=== PATIENT | male | born 1970 | race Caucasian/White ===

== ENCOUNTER 2016-07-09 23:21 | Emergency (ER) | payer MEDICARE ==
[~2016-07-09] VITALS: Ht 180.3 cm; Wt 91.8 kg
[~2016-07-09 23:21] MED LIST: ARIP10TA13 PO; CITA20TA9 PO; LEVE500T53 PO; LEVO50TA PO; OXCA150T PO; PARO20TA55 PO; PHEN100C PO; PRIM50TA PO; TERA2CAP3 PO
[2016-07-10 00:28] LABS: BLOOD UREA NITROGEN 6 mg/dL (7-18)
[2016-07-10 00:29] LABS: ACETAMINOPHEN < 2 mcg/mL (10-30)
[2016-07-10 02:32] VITALS: BP 125/83
[2016-07-11] MEDS ORDERED: OLAN2.5T3 PO (13:13)
[2016-07-11] MEDS ORDERED: BENZ2TAB6 PO (13:13)
[2016-07-11] MEDS ORDERED: cogentin PO (13:13)
[2016-07-11] MEDS ORDERED: CARB200T4 PO (13:13)
[2016-07-11] MEDS ORDERED: HALO5TAB5 PO (13:13)
[2016-07-11] MEDS ORDERED: PARO10TA24 PO (13:13)
[2016-07-11] MEDS ORDERED: CARB200T PO ×2 (13:13)
[2016-07-11] MEDS ORDERED: TAMS-11 PO (13:13)
[2016-07-11] MEDS ORDERED: VALP250C59 PO (14:24)
== END 2016-07-10 02:34 | disposition home or self-care (01) ==
LOC: ED 23:59
DX: F20.0 Paranoid schizophrenia (principal); F31.9 Bipolar disorder, unspecified
CPT/HCPCS: 36415; 80048; 80307; 80329; 82040; 85025; 99284; G0480

== ENCOUNTER 2016-07-11 11:46 | Emergency (ER) | payer MEDICARE ==
[~2016-07-11] VITALS: Ht 180.3 cm; Wt 84.2 kg
[2016-07-11 13:09] LABS: DAU SCREEN DISCLAIMER
[2016-07-11] MEDS ORDERED: HALO5TAB5 PO (13:13)
[2016-07-11] MEDS ORDERED: TAMS-11 PO (13:13)
[2016-07-11] MEDS ORDERED: CARB200T PO ×2 (13:13)
[2016-07-11] MEDS ORDERED: PARO10TA24 PO (13:13)
[2016-07-11] MEDS ORDERED: BENZ2TAB6 PO (13:13)
[2016-07-11] MEDS ORDERED: CARB200T4 PO (13:13)
[2016-07-11] MEDS ORDERED: OLAN2.5T3 PO (13:13)
[2016-07-11] MEDS ORDERED: cogentin PO (13:13)
[2016-07-11 13:15] LABS: PATH.CAST-FLAG NOT PRESENT; SPERM-FLAG NOT PRESENT; SRC-FLAG NOT PRESENT; XTAL-FLAG NOT PRESENT; YLC-FLAG NOT PRESENT
[2016-07-11 13:34] LABS: ACETAMINOPHEN 2 mcg/mL (10-30); ASPARTATE AMINO TRANSFERASE 17 U/L (15-37); BLOOD UREA NITROGEN 6 mg/dL (7-18)
[2016-07-11] MEDS ORDERED: VALP250C59 PO (14:24)
[2016-07-11 15:08] VITALS: BP 108/79
== END 2016-07-11 15:12 | disposition home or self-care (01) ==
LOC: ED 12:48
DX: F33.9 Major depressive disorder, recurrent, unspecified (principal)
CPT/HCPCS: 36415; 80053; 80156; 80164; 80307; 80329; 81001; 84443; 85025; 99284; G0480

== ENCOUNTER 2016-07-14 19:43 | Emergency (ER) | payer MEDICARE ==
[~2016-07-14] VITALS: Ht 180.3 cm; Wt 87.8 kg
[~2016-07-14 19:43] MED LIST changes: +BENZ2TAB6 PO; +CARB200T PO; +CARB200T4 PO; +HALO5TAB5 PO; +OLAN2.5T3 PO; +PARO10TA24 PO; +TAMS-11 PO; +VALP250C59 PO; +cogentin PO
[2016-07-14] MEDS ORDERED: OLANZAPINE 10 MG TABLET PO ONE (21:00)
[2016-07-14 21:44] VITALS: BP 131/93
== END 2016-07-14 21:46 | disposition home or self-care (01) ==
LOC: ED 20:27
DX: F29 Unspecified psychosis not due to a substance or known physiological condition (principal); F43.10 Post-traumatic stress disorder, unspecified; F31.9 Bipolar disorder, unspecified; F20.0 Paranoid schizophrenia; G89.29 Other chronic pain; Z91.14 Patient's other noncompliance with medication regimen
CPT/HCPCS: 99284

== ENCOUNTER 2016-07-24 18:33 | Emergency (ER) | payer MEDICARE ==
[~2016-07-24] VITALS: Ht 180.3 cm; Wt 84.0 kg
[2016-07-24] MEDS ORDERED: NALOXONE 0.4 MG/ML, 1ML IVPush PRN (19:00)
[2016-07-24] MEDS ORDERED: SODIUM CHLORIDE 0.9% 1,000ML IVBOLUS ONE (19:00)
[2016-07-24 19:33] LABS: DAU SCREEN DISCLAIMER
[2016-07-24 19:39] LABS: ASPARTATE AMINO TRANSFERASE 15 U/L (15-37); BLOOD UREA NITROGEN 8 mg/dL (7-18)
[2016-07-24 19:45] LABS: ACETAMINOPHEN < 2 mcg/mL (10-30)
[2016-07-24] MEDS ORDERED: PHEN50TA4 PO (20:10)
[2016-07-24] MEDS ORDERED: VALP250C59 PO (20:10)
[2016-07-24] MEDS ORDERED: LEVE10007 PO (20:10)
[2016-07-24] MEDS ORDERED: PARO20TA4 PO (20:10)
[2016-07-24] MEDS ORDERED: TOPI50TA77 PO (20:10)
[2016-07-24] MEDS ORDERED: FLUP2.5T PO (20:10)
[2016-07-24] MEDS ORDERED: DIVA500T9 PO (20:10)
[2016-07-24] MEDS ORDERED: CARB200T4 PO (20:10)
[2016-07-24] MEDS ORDERED: TERA2CAP3 PO (20:10)
[2016-07-24 21:04] VITALS: BP 127/84
== END 2016-07-24 21:16 | disposition home or self-care (01) ==
LOC: ED 21:10
DX: F20.1 Disorganized schizophrenia (principal); F31.9 Bipolar disorder, unspecified; M19.90 Unspecified osteoarthritis, unspecified site; Z88.8 Allergy status to other drugs, medicaments and biological substances
CPT/HCPCS: 36415; 80053; 80307; 80329; 81003; 82140; 85025; 99284; G0480

== ENCOUNTER 2016-08-07 17:55 | Inpatient (IN) | payer MEDICARE ==
[~2016-08-07] VITALS: Ht 180.3 cm; Wt 81.1 kg
[~2016-08-07 17:55] MED LIST changes: +DIVA500T9 PO; +FLUP2.5T PO; +LEVE10007 PO; +PARO20TA4 PO; +PHEN50TA4 PO; +TOPI50TA77 PO
[2016-08-07] MEDS ORDERED: SODIUM CHLORIDE FLUSH 10ML SYR IVF ONE (18:30)
[2016-08-07] MEDS ORDERED: SODIUM CHLORIDE 0.9% 1,000ML IVBOLUS ONE (18:30)
[2016-08-07 18:34] LABS: BLOOD UREA NITROGEN 8 mg/dL (7-18)
[2016-08-07] MEDS ORDERED: LACTULOSE 20 GM/30 ML UDC PO STA (18:46)
[2016-08-07] MEDS ORDERED: MAGNESIUM SULFATE 1 GM, THIAMINE 100 MG, FOLIC ACID 1 MG, MVI ADULT 10 ML in SODIUM CHL... IV ONE (19:00)
[2016-08-07 19:50] LABS: ASPARTATE AMINO TRANSFERASE 6 U/L (15-37)
[2016-08-07] MEDS ORDERED: LACTULOSE 10 GM/15 ML UDC PO SCH (21:30)
[2016-08-08] MEDS: ENOXAPARIN 40 MG/0.4 ML SQ SCH ×2 (00:41→23:00)
[2016-08-08 01:50] VITALS: BP 106/71
[2016-08-08 04:56] LABS: BLOOD UREA NITROGEN 8 mg/dL (7-18)
[2016-08-08 05:30] LABS: DAU SCREEN DISCLAIMER
[2016-08-08] MEDS: LACTULOSE 20 GM/30 ML UDC PO SCH ×4 (05:46→20:40)
[2016-08-08] MEDS: LEVOTHYROXINE 50 MCG TABLET PO SCH (06:00)
[2016-08-08] MEDS ORDERED: VALPROIC ACID 250 MG CAPSULE PO SCH (06:00)
[2016-08-08 06:46] VITALS: BP 133/88
[2016-08-08] MEDS ORDERED: ZIPRASIDONE 20 MG INJ IM PRN (09:00)
[2016-08-08] MEDS ORDERED: PAROXETINE 20 MG TABLET PO SCH (09:00)
[2016-08-08] MEDS ORDERED: LACTULOSE 3.3 GM/5 ML ORAL.SOL RC ONE ×2 (09:00)
[2016-08-08] MEDS ORDERED: DIVALPROEX 500 MG TABLET.DR PO SCH (09:00)
[2016-08-08] MEDS ORDERED: TOPIRAMATE 50 MG PO SCH (09:00)
[2016-08-08] MEDS ORDERED: ZIPRASIDONE 20 MG INJ IM ONE (09:30)
[2016-08-08] MEDS: BENZTROPINE 1 MG TABLET PO SCH ×2 (09:49→20:41)
[2016-08-08] MEDS: TAMSULOSIN 0.4 MG CAP.ER.24H PO SCH (09:49)
[2016-08-08] MEDS: LEVETIRACETAM 500 MG TABLET PO SCH ×3 (09:50→20:41)
[2016-08-08] MEDS: FLUPHENAZINE 2.5 MG TABLET PO SCH ×2 (09:50→16:53)
[2016-08-08] MEDS: RIFAXIMIN 550 MG TABLET PO SCH ×2 (09:51→20:41)
[2016-08-08] MEDS: CARBAMAZEPINE 200 MG TABLET PO SCH ×3 (09:51→20:41)
[2016-08-08] MEDS: POTASSIUM CHLORIDE 20 MEQ, MAGNESIUM SULFATE 2 GM, THIAMINE 100 MG, MVI ADULT 10 ML, FO... IV SCH (12:24)
[2016-08-08 15:49] VITALS: BP 122/85
[2016-08-08] MEDS ORDERED: LACT20SO13 PO (16:57)
[2016-08-08] MEDS ORDERED: ZIPR20VI IM (16:57)
[2016-08-08] MEDS ORDERED: DIVA500T9 PO (17:04)
[2016-08-08] MEDS ORDERED: LITHIUM CARBONATE 300 MG CAPSULE PO ONE ×2 (17:30→21:00)
[2016-08-08 19:42] VITALS: BP 108/73
[2016-08-08] MEDS ORDERED: PHENYTOIN 100 MG CAPSULE PO SCH (21:00)
[2016-08-08] MEDS ORDERED: TERAZOSIN 2MG CAPSULE PO SCH (21:00)
[2016-08-09 02:54] VITALS: BP 127/85
[2016-08-09] MEDS: LEVOTHYROXINE 50 MCG TABLET PO SCH (06:25)
[2016-08-09 07:07] VITALS: BP 116/76
[2016-08-09] MEDS: RIFAXIMIN 550 MG TABLET PO SCH (08:24)
[2016-08-09] MEDS: TAMSULOSIN 0.4 MG CAP.ER.24H PO SCH (08:24)
[2016-08-09] MEDS: LACTULOSE 20 GM/30 ML UDC PO SCH ×2 (08:24→16:34)
[2016-08-09] MEDS: LITHIUM CARBONATE 300 MG CAPSULE PO SCH ×2 (08:24→16:00)
[2016-08-09] MEDS: BENZTROPINE 1 MG TABLET PO SCH (08:25)
[2016-08-09] MEDS: LEVETIRACETAM 500 MG TABLET PO SCH ×2 (08:25→16:33)
[2016-08-09] MEDS: CARBAMAZEPINE 200 MG TABLET PO SCH ×2 (08:25→16:33)
[2016-08-09] MEDS: POTASSIUM CHLORIDE 20 MEQ, MAGNESIUM SULFATE 2 GM, THIAMINE 100 MG, MVI ADULT 10 ML, FO... IV SCH (10:00)
[2016-08-09 13:00] VITALS: BP 131/85
[2016-08-27] MEDS ORDERED: PALIPERIDONE 156 MG IM SCH (17:30)
[2016-08-28] MEDS ORDERED: HALOPERIDOL DECANOATE 100 MG IM SCH (17:30)
== END 2016-08-09 17:04 | DRG 895 ==
LOC: ED 19:14 → EDIP 19:25 → 3NE 20:03 → 3E 08-09 11:29
PROVIDERS: ADMIT Internal Medicine; ATTEND Internal Medicine
PROC: HZ34ZZZ Individual Counseling for Substance Abuse Treatment, Interpersonal (ICD-10-PCS; principal; 2016-08-07)
DX: F10.10 Alcohol abuse, uncomplicated (principal); G92 Toxic encephalopathy; T42.1X5A Adverse effect of iminostilbenes, initial encounter; T42.6X5A Adverse effect of other antiepileptic and sedative-hypnotic drugs, initial encounter; T43.595A Adverse effect of other antipsychotics and neuroleptics, initial encounter; T43.4X5A Adverse effect of butyrophenone and thiothixene neuroleptics, initial encounter; F25.0 Schizoaffective disorder, bipolar type; E03.9 Hypothyroidism, unspecified; F43.10 Post-traumatic stress disorder, unspecified; M19.90 Unspecified osteoarthritis, unspecified site; F31.9 Bipolar disorder, unspecified; G40.909 Epilepsy, unspecified, not intractable, without status epilepticus; I50.9 Heart failure, unspecified; K72.90 Hepatic failure, unspecified without coma; N40.0 Benign prostatic hyperplasia without lower urinary tract symptoms; Z91.14 Patient's other noncompliance with medication regimen; Z79.899 Other long term (current) drug therapy; Z82.49 Family history of ischemic heart disease and other diseases of the circulatory system
CPT/HCPCS: 36415; 80048; 80076; 80157; 80164; 80178; 80185; 80186; 80307; 82040; 82140; 84439; 84443; 85025; 93005; 96360; J1650; J3411; J3475; J3480; J3486; J7042; J7030

== ENCOUNTER 2016-09-10 23:41 | Emergency (ER) | payer MEDICARE ==
[~2016-09-10] VITALS: Ht 165.1 cm; Wt 83.1 kg
[~2016-09-10 23:41] MED LIST changes: +DIVA-68 PO; -DIVA500T9 PO; +LACT20SO13 PO; +ZIPR20VI IM
[2016-09-10 23:42] VITALS: BP 116/84
== END 2016-09-11 00:40 | disposition home or self-care (01) ==
LOC: ED 09-11 00:25
DX: F20.0 Paranoid schizophrenia (principal); F31.9 Bipolar disorder, unspecified; Z59.0 Homelessness; Z88.8 Allergy status to other drugs, medicaments and biological substances
CPT/HCPCS: 99284

== ENCOUNTER 2016-11-06 02:56 | Emergency (ER) | payer MEDICARE ==
[~2016-11-06] VITALS: Ht 180.3 cm; Wt 91.0 kg
[~2016-11-06 02:56] MED LIST changes: -ARIP10TA13 PO; +ARIP10TA33 PO; -PARO10TA24 PO; +PARO10TA56 PO; -PARO20TA55 PO; +PARO20TA98 PO; -TOPI50TA77 PO; +TOPI50TA8 PO
[2016-11-06] MEDS ORDERED: SODIUM CHLORIDE 0.9% 1,000ML IVBOLUS ONE (03:00)
[2016-11-06] MEDS ORDERED: LORazepam 2 MG/ML, 1ML IVPush ONE (03:00)
[2016-11-06] MEDS ORDERED: SODIUM CHLORIDE FLUSH 10ML SYR IVF ONE (03:00)
[2016-11-06] MEDS ORDERED: PARO40TA61 PO (03:10)
[2016-11-06 03:16] LABS: HEMATOCRIT 38.8 % (39.2-51.8); HEMOGLOBIN 13.1 g/dL (13.7-18.0); WHITE BLOOD COUNT 7.4 x10^3/uL (3.4-10)
[2016-11-06 03:26] LABS: BLOOD UREA NITROGEN 14 mg/dL (7-18)
[2016-11-06] MEDS ORDERED: POTASSIUM CHLORIDE 20 MEQ TAB.ER.PRT ONE (03:55)
[2016-11-06] MEDS ORDERED: POTASSIUM CHLORIDE 20 MEQ TAB.ER.PRT PO ONE (04:00)
[2016-11-06 04:03] VITALS: BP 125/87
== END 2016-11-06 04:07 | disposition home or self-care (01) ==
LOC: ED 03:09
DX: F41.1 Generalized anxiety disorder (principal); F20.9 Schizophrenia, unspecified; F31.9 Bipolar disorder, unspecified; M19.90 Unspecified osteoarthritis, unspecified site
CPT/HCPCS: 36415; 80048; 82040; 85025; 93005; 96360; 99285; J7030

== ENCOUNTER 2017-09-06 18:18 | Emergency (ER) | payer MEDICARE ==
[~2017-09-06] VITALS: Ht 180.3 cm; Wt 74.3 kg
[~2017-09-06 18:18] MED LIST changes: +PARO40TA61 PO
[2017-09-06 18:19] VITALS: BP 113/77
== END 2017-09-06 18:45 | disposition left against medical advice (07) ==
LOC: ED 18:39
DX: R00.0 Tachycardia, unspecified (principal); Z76.0 Encounter for issue of repeat prescription
CPT/HCPCS: 99281

== ENCOUNTER 2019-09-02 15:46 | Emergency (ER) | payer MEDICARE ==
[~2019-09-02] VITALS: Ht 180.3 cm; Wt 78.0 kg
[~2019-09-02 15:46] MED LIST changes: +DIVA-61 PO; -DIVA-68 PO; -FLUP2.5T PO; +FLUP2.5T3 PO; -OXCA150T PO; +OXCA150T18 PO
[2019-09-02 16:05] VITALS: BP 114/89
--- NOTE | 2019-09-02 16:48 | NUR ---
SASH STICKER: NA X 1
--- NOTE | 2019-09-02 17:02 | NUR ---
BAND CUTTER: NA X 2
--- NOTE | 2019-09-02 17:12 | NUR ---
CAR RENTAL AGENT: NA X 3
== END 2019-09-02 17:13 | disposition left against medical advice (07) ==
LOC: ED 17:00
DX: R42 Dizziness and giddiness (principal); R11.0 Nausea; Z53.21 Procedure and treatment not carried out due to patient leaving prior to being seen by health care provider
CPT/HCPCS: 93005

== ENCOUNTER 2020-06-21 20:54 | Emergency (ER) | payer MEDICARE ==
[~2020-06-21] VITALS: Ht 180.3 cm; Wt 80.0 kg
[2020-06-21 21:25] LABS: BASOPHILS % (AUTO) 0 % (0-1); EOSINOPHILS % (AUTO) 3 % (1-7); LYMPHOCYTES % (AUTO) 18 % (22-44); MEAN CORPUSCULAR HEMOGLOBIN 28.1 pg (27.5-34.5); MEAN CORPUSCULAR HGB CONC 32.8 g/dL (33.2-36.2); MEAN PLATELET VOLUME 8.2 fL (7.4-10.4); MONOCYTES % (AUTO) 8 % (2-9); NEUTROPHILS % (AUTO) 70 % (42-75); PLATELET COUNT 238 x10^3/uL (130-400); RED BLOOD COUNT 4.76 x10^6/uL (4.38-5.82); RED CELL DISTRIBUTION WIDTH 13.8 % (9.4-14.8)
[2020-06-21 21:27] LABS: MD NO
--- NOTE | 2020-06-21 21:27 | NUR ---
pt restign in bed ua/labs pending, a&ox4 gcs 15. calm, cooperative. as
[2020-06-21 21:36] LABS: ALBUMIN 3.4 g/dL (3.4-5.0); ANION GAP 5 mmol/L (5-15); CALCIUM 8.3 mg/dL (8.5-10.1); CHLORIDE 117 mmol/L (98-107)
[2020-06-21 21:36] LABS: AMPHETAMINE SCREEN, URINE Negative (Negative); BENZODIAZEPINE SCREEN, URINE Negative (Negative); CANNABINOID SCREEN, URINE Negative (Negative); COCAINE SCREEN, URINE Negative (Negative); METHADONE SCREEN, URINE Negative (Negative)
[2020-06-21 21:39] LABS: ALANINE AMINOTRANSFERASE 39 U/L (12-78); ALKALINE PHOSPHATASE 131 U/L (45-117); BILIRUBIN,TOTAL 0.2 mg/dL (0.2-1.0); CREATININE 0.92 mg/dL (0.7-1.3); TOTAL PROTEIN 6.4 g/dL (6.4-8.2)
[2020-06-21 21:42] LABS: BARBITURATE SCREEN, URINE Negative (Negative); OPIATE SCREEN, URINE Negative (Negative)
[2020-06-21 21:53] VITALS: BP 109/80
== END 2020-06-21 22:32 | disposition home or self-care (01) ==
LOC: ED 21:24
DX: R56.9 Unspecified convulsions (principal); F20.9 Schizophrenia, unspecified; R94.31 Abnormal electrocardiogram [ECG] [EKG]
CPT/HCPCS: 36415; 80053; 80307; 80320; 85025; 93005; 99284; G0480